=== PATIENT | female | born 2000 | race Asian ===

== ENCOUNTER → 2024-06-05 | Outpatient (CLI) | payer BC | END | disposition home or self-care (01) | LOC: MRI 13:04 | PROVIDERS: ATTEND Internal Medicine Rheumatology | DX: N83.291 Other ovarian cyst, right side (principal); N85.4 Malposition of uterus; M48.061 Spinal stenosis, lumbar region without neurogenic claudication; M51.26 Other intervertebral disc displacement, lumbar region; K59.00 Constipation, unspecified | CPT/HCPCS: 72195 ==